=== PATIENT | male | born 1940 | race Caucasian/White ===

== ENCOUNTER 2017-06-06 16:56 | Observation (INO) ==
[2017-06-06] MEDS ORDERED: MAGNESIUM SULF RIDER 4 GM in PREMIX 1 EACH IV PRN (19:46)
[2017-06-06] MEDS ORDERED: ZALEPLON 5 MG CAPSULE PO PRN (19:46)
[2017-06-06] MEDS ORDERED: DOCUSATE SODIUM 100 MG CAPSULE PO PRN (19:46)
[2017-06-06] MEDS ORDERED: POTASSIUM CHLORIDE 20 MEQ TABLET PO PRN (19:46)
[2017-06-06] MEDS ORDERED: ACETAMINOPHEN 325 MG TABLET PO PRN (19:46)
[2017-06-06] MEDS ORDERED: LACTULOSE 20 GM/30 ML UDCUP PO PRN (19:46)
[2017-06-06] MEDS ORDERED: POTASSIUM CHLORIDE RIDER 10 MEQ in PREMIX 1 EACH IV PRN (19:46)
[2017-06-06] MEDS ORDERED: MAGNESIUM SULF RIDER 2 GM in PREMIX 1 EACH IV PRN (19:46)
[2017-06-06] MEDS ORDERED: POTASSIUM CHLORIDE RIDER 20 MEQ in PREMIX 1 EACH IV PRN (19:46)
[2017-06-06] MEDS ORDERED: ONDANSETRON 4 MG/2 ML VIAL IV PRN (19:46)
[2017-06-06] MEDS ORDERED: NITROGLYCERIN SL 0.4 MG TABLET SL PRN (19:52)
[2017-06-06] MEDS: CARVEDILOL 6.25 MG TABLET PO SCH (20:52)
[2017-06-06] MEDS: ROSUVASTATIN 20 MG TABLET PO SCH (20:52)
[2017-06-06] MEDS ORDERED: INFLUENZA VIRUS VACCINE 0.5 ML SYRINGE IM ONE (22:58)
[2017-06-07 04:46] LABS: Basophils % 0.4 % (0.0-0.8); Eosinophils # 0.1 10*3/uL (0.0-0.87); Eosinophils % 2.5 % (0.00-10.9); Hemoglobin 11.8 GM/DL (14.0-18.0); Immature Granulocytes % 0.4 %; Immature Granulocytes Absolute 0.02 #; Lymphocytes # 1.5 10*3/uL (1.4-4.0); Lymphocytes % 26.1 % (21.2-54.2); Mean Corpuscular HGB Conc 33.7 GM/DL (32-36); Mean Corpuscular Hemoglobin 27 PG (27-34); Mean Corpuscular Volume 81.4 FL (87-102); Mean Platelet Volume 10.6 FL (9.6-12.0); Monocytes # 0.6 10*3/uL (0.11-0.8); Monocytes % 10.5 % (1.7-12.7); Neutrophils # 3.4 10*3/uL (1.4-7.4); Neutrophils % 60.1 % (38.7-73.9); Platelet Count 170 T/CUMM (130-400); Red Cell Distribution Width 15.6 % (9.3-17.3); White Blood Count 5.7 T/CUMM (4-12)
[2017-06-07 05:20] LABS: Calcium 8.6 MG/DL (8.5-10.1); Osmolality,Calculated 287.4 MOS/KG (273-304); Potassium 3.8 MMOL/L (3.5-5.1)
[2017-06-07 05:26] LABS: Albumin 3.5 G/DL (3.4-5.0); Bilirubin,Total 0.9 MG/DL (0.2-1.0); Calcium 8.4 MG/DL (8.5-10.1); Osmolality,Calculated 288.4 MOS/KG (273-304); Potassium 3.7 MMOL/L (3.5-5.1); Total Protein 6.8 G/DL (6.4-8.3)
[2017-06-07] MEDS: LEVOTHYROXINE 25 MCG TABLET PO SCH (05:57)
[2017-06-07] MEDS ORDERED: ceFAZolin 1,000 MG in SYRINGE 1 EACH IV ONE (06:00)
[2017-06-07] MEDS ORDERED: ceFAZolin 1,000 MG VIAL IRRIG ONE (06:00)
[2017-06-07] MEDS ORDERED: LIDOCAINE 1% 20 ML VIAL ONE ×3 (07:42→08:03)
[2017-06-07] MEDS ORDERED: HEPARIN/NACL 0.9% 2 UNITS/ML 1,000 ML IV ONE (07:42)
[2017-06-07] MEDS ORDERED: MAGNESIUM SULF RIDER 50 ML IV ONE (08:19)
[2017-06-07] MEDS ORDERED: AMIODARONE 200 MG TABLET PO SCH (09:00)
[2017-06-07] MEDS ORDERED: TISSUE ADHESIVE 1 EACH APPLICATOR TOP ONE (09:15)
[2017-06-07] MEDS ORDERED: PROPOFOL 200 MG/20 ML VIAL IV ONE (09:46)
[2017-06-07] MEDS ORDERED: fentaNYL 100 MCG/2 ML VIAL ONE (09:47)
[2017-06-07] MEDS ORDERED: MIDAZOLAM 2 MG/2 ML VIAL ONE (09:47)
[2017-06-07] MEDS: FUROSEMIDE 40 MG TABLET PO SCH (11:21)
[2017-06-07] MEDS: LISINOPRIL 5 MG TABLET PO SCH (11:21)
[2017-06-07] MEDS: MONTELUKAST 10 MG TABLET PO SCH (11:21)
[2017-06-07] MEDS: SPIRONOLACTONE 25 MG TABLET PO SCH (11:21)
[2017-06-07] MEDS: CLOPIDOGREL 75 MG TABLET PO SCH (11:21)
[2017-06-07] MEDS: CARVEDILOL 6.25 MG TABLET PO SCH ×2 (11:22→16:38)
[2017-06-07] MEDS: ASPIRIN 325 MG TABLET PO SCH (11:22)
[2017-06-07] MEDS: PANTOPRAZOLE 40 MG TABLET PO SCH (11:22)
[2017-06-07] MEDS: MAGNESIUM CHLORIDE 64 MG TABLET PO SCH ×2 (11:22→21:43)
[2017-06-07] MEDS ORDERED: KETAMINE 500 MG/10 ML VIAL ONE (11:25)
[2017-06-07] MEDS: ceFAZolin 1,000 MG in SYRINGE 1 EACH IV SCH (16:38)
[2017-06-07] MEDS ORDERED: clonazePAM 0.5 MG TABLET PO SCH (21:00)
[2017-06-07] MEDS: ROSUVASTATIN 20 MG TABLET PO SCH (21:46)
[2017-06-08] MEDS: ceFAZolin 1,000 MG in SYRINGE 1 EACH IV SCH (01:30)
[2017-06-08] MEDS: LEVOTHYROXINE 25 MCG TABLET PO SCH (06:28)
[2017-06-08 06:58] LABS: Calcium 8.7 MG/DL (8.5-10.1); Osmolality,Calculated 281.8 MOS/KG (273-304); Potassium 3.6 MMOL/L (3.5-5.1)
[2017-06-08 06:59] LABS: Basophils % 0.4 % (0.0-0.8); Eosinophils # 0.2 10*3/uL (0.0-0.87); Eosinophils % 2.9 % (0.00-10.9); Hematocrit 35.9 VOL% (42.0-52.0); Hemoglobin 11.9 GM/DL (14.0-18.0); Immature Granulocytes % 0.2 %; Immature Granulocytes Absolute 0.01 #; Lymphocytes # 1.3 10*3/uL (1.4-4.0); Lymphocytes % 23.3 % (21.2-54.2); Mean Corpuscular HGB Conc 33.1 GM/DL (32-36); Mean Corpuscular Hemoglobin 27 PG (27-34); Mean Corpuscular Volume 82.2 FL (87-102); Mean Platelet Volume 10.5 FL (9.6-12.0); Monocytes # 0.7 10*3/uL (0.11-0.8); Monocytes % 11.9 % (1.7-12.7); Neutrophils # 3.3 10*3/uL (1.4-7.4); Neutrophils % 61.3 % (38.7-73.9); Platelet Count 172 T/CUMM (130-400); Red Blood Count 4.37 MC/CUMM (3.8-5.5); Red Cell Distribution Width 15.8 % (9.3-17.3); White Blood Count 5.4 T/CUMM (4-12)
[2017-06-08] MEDS: ASPIRIN 325 MG TABLET PO SCH (09:13)
[2017-06-08] MEDS: CARVEDILOL 6.25 MG TABLET PO SCH (09:13)
[2017-06-08] MEDS: MONTELUKAST 10 MG TABLET PO SCH (09:13)
[2017-06-08] MEDS: MAGNESIUM CHLORIDE 64 MG TABLET PO SCH (09:14)
[2017-06-08] MEDS: FUROSEMIDE 40 MG TABLET PO SCH (09:14)
[2017-06-08] MEDS: SPIRONOLACTONE 25 MG TABLET PO SCH (09:14)
[2017-06-08] MEDS: PANTOPRAZOLE 40 MG TABLET PO SCH (09:14)
[2017-06-08] MEDS: CLOPIDOGREL 75 MG TABLET PO SCH (09:14)
[2017-06-08] MEDS: LISINOPRIL 5 MG TABLET PO SCH (09:19)
[2017-06-08 11:30] VITALS: BP 133/82
[2017-06-08] MEDS ORDERED: cephALEXin 500 MG CAPSULE PO SCH (11:30)
== END 2017-06-08 14:53 | disposition home or self-care (01) ==
LOC: N.TELES
PROVIDERS: ADMIT Internal Medicine Clinical Cardiac Electrophysiology; ATTEND Internal Medicine Clinical Cardiac Electrophysiology
PROC: CLDCICD (2017-06-07 10:45)

== ENCOUNTER 2017-11-05 14:12 | Inpatient (IN) ==
[2017-11-05 15:13] LABS: Basophils % 0.4 % (0.0-0.8); Eosinophils # 0.1 10*3/uL (0.0-0.87); Eosinophils % 2.3 % (0.00-10.9); Hemoglobin 12.9 GM/DL (14.0-18.0); Immature Granulocytes % 0.4 %; Immature Granulocytes Absolute 0.02 #; Lymphocytes # 1.4 10*3/uL (1.4-4.0); Lymphocytes % 26.4 % (21.2-54.2); Mean Corpuscular HGB Conc 33.9 GM/DL (32-36); Mean Corpuscular Hemoglobin 29 PG (27-34); Mean Platelet Volume 10.3 FL (9.6-12.0); Monocytes # 0.5 10*3/uL (0.11-0.8); Monocytes % 9.8 % (1.7-12.7); Neutrophils # 3.2 10*3/uL (1.4-7.4); Neutrophils % 60.7 % (38.7-73.9); Platelet Count 172 T/CUMM (130-400); Red Blood Count 4.42 MC/CUMM (3.8-5.5); Red Cell Distribution Width 13.8 % (9.3-17.3); White Blood Count 5.3 T/CUMM (4-12)
[2017-11-05 15:34] LABS: Partial Thromboplastin Time 26.5 SECS (0-40)
[2017-11-05 15:38] LABS: Albumin 3.6 G/DL (3.4-5.0); Bilirubin,Total 0.5 MG/DL (0.2-1.0); Calcium 8.6 MG/DL (8.5-10.1); Osmolality,Calculated 287.4 MOS/KG (273-304); Potassium 4.3 MMOL/L (3.5-5.1); Total Protein 7.3 G/DL (6.4-8.3)
[2017-11-05 15:45] LABS: CKMB % 3.1 %; Free T4 (Free Thyroxine) 1.11 NG/DL (0.76-1.46); Thyroid Stimulating Hormone 2.39 uIU/ml (0.358-3.74)
[2017-11-05] MEDS ORDERED: ONDANSETRON 4 MG/2 ML VIAL ONE (15:57)
[2017-11-05] MEDS ORDERED: ONDANSETRON 4 MG/2 ML VIAL IV STA (15:57)
[2017-11-05] MEDS ORDERED: MAGNESIUM SULF RIDER 4 GM in PREMIX 1 EACH IV PRN (16:06)
[2017-11-05] MEDS ORDERED: ONDANSETRON 4 MG/2 ML VIAL IV PRN (16:06)
[2017-11-05] MEDS ORDERED: DOCUSATE SODIUM 100 MG CAPSULE PO PRN (16:06)
[2017-11-05] MEDS ORDERED: MAGNESIUM SULF RIDER 2 GM in PREMIX 1 EACH IV PRN (16:06)
[2017-11-05] MEDS ORDERED: DEXTROSE 50% 25 GM/50 ML VIAL IV PRN (16:06)
[2017-11-05] MEDS ORDERED: GLUCAGON 1 MG VIAL IM PRN (16:06)
[2017-11-05] MEDS ORDERED: ENOXAPARIN 100 MG/ML SYRINGE SUBCUT STA (16:11)
[2017-11-05] MEDS ORDERED: ASPIRIN 325 MG TABLET PO STA (16:12)
[2017-11-05 17:55] LABS: CKMB % 2.7 %
[2017-11-05] MEDS: NITROGLYCERIN 2% OINT 1 INCH/GM PACK TOP SCH ×2 (18:05→21:39)
[2017-11-05] MEDS: INSULIN LISPRO 100 UNIT/ML SUBCUT SCH ×2 (18:05→22:17)
[2017-11-05] MEDS: SODIUM CHLORIDE 0.45% 1,000 ML IV SCH (18:10)
[2017-11-06] MEDS: ZALEPLON 5 MG CAPSULE PO PRN ×2 (00:12→00:13)
[2017-11-06] MEDS: SODIUM CHLORIDE 0.45% 1,000 ML IV SCH ×2 (02:44→09:59)
[2017-11-06] MEDS ORDERED: FUROSEMIDE 40 MG TABLET PO PRN (07:44)
[2017-11-06] MEDS ORDERED: NITROGLYCERIN SL 0.4 MG TABLET SL PRN (07:44)
[2017-11-06] MEDS ORDERED: SPIRONOLACTONE 25 MG TABLET PO SCH (09:00)
[2017-11-06] MEDS ORDERED: LISINOPRIL 20 MG TABLET PO SCH (09:00)
[2017-11-06] MEDS ORDERED: CARVEDILOL 12.5 MG TABLET PO SCH (09:00)
[2017-11-06] MEDS ORDERED: PANTOPRAZOLE 40 MG TABLET PO SCH (09:00)
[2017-11-06] MEDS: FUROSEMIDE 40 MG/4 ML VIAL IV SCH ×2 (09:08→16:44)
[2017-11-06] MEDS: INSULIN LISPRO 100 UNIT/ML SUBCUT SCH ×5 (09:08→21:01)
[2017-11-06] MEDS: metFORMIN 500 MG TABLET PO SCH ×2 (09:09→16:45)
[2017-11-06] MEDS: CLOPIDOGREL 75 MG TABLET PO SCH (09:09)
[2017-11-06] MEDS: CARVEDILOL 3.125 MG TABLET PO SCH (09:10)
[2017-11-06] MEDS: GLIMEPIRIDE 4 MG TABLET PO SCH ×2 (09:10→21:01)
[2017-11-06] MEDS: SPIRONOLACTONE 25 MG TABLET PO SCH (09:10)
[2017-11-06] MEDS: NITROGLYCERIN 2% OINT 1 INCH/GM PACK TOP SCH ×4 (10:00→22:17)
[2017-11-06] MEDS: ASPIRIN 325 MG TABLET PO SCH (10:39)
[2017-11-06] MEDS: clonazePAM 0.5 MG TABLET PO SCH (21:00)
[2017-11-06] MEDS: ROSUVASTATIN 20 MG TABLET PO SCH (21:01)
[2017-11-07] MEDS: LEVOTHYROXINE 25 MCG TABLET PO SCH (06:23)
[2017-11-07] MEDS: INSULIN LISPRO 100 UNIT/ML SUBCUT SCH ×4 (09:19→22:56)
[2017-11-07] MEDS: FUROSEMIDE 40 MG/4 ML VIAL IV SCH ×2 (09:19→16:51)
[2017-11-07] MEDS: NITROGLYCERIN 2% OINT 1 INCH/GM PACK TOP SCH ×2 (09:20→13:01)
[2017-11-07] MEDS: PANTOPRAZOLE 40 MG TABLET PO SCH (09:20)
[2017-11-07] MEDS: ASPIRIN 325 MG TABLET PO SCH (09:20)
[2017-11-07] MEDS: metFORMIN 500 MG TABLET PO SCH ×2 (09:20→16:51)
[2017-11-07] MEDS: SPIRONOLACTONE 25 MG TABLET PO SCH (09:21)
[2017-11-07] MEDS: GLIMEPIRIDE 4 MG TABLET PO SCH ×2 (09:21→21:01)
[2017-11-07] MEDS: CARVEDILOL 3.125 MG TABLET PO SCH (09:21)
[2017-11-07] MEDS: CLOPIDOGREL 75 MG TABLET PO SCH (09:21)
[2017-11-07] MEDS ORDERED: DEXTROSE 50% 25 GM/50 ML VIAL IV PRN (13:25)
[2017-11-07] MEDS ORDERED: GLUCAGON 1 MG VIAL IM PRN (13:25)
[2017-11-07 13:31] LABS: Basophils % 0.6 % (0.0-0.8); Eosinophils # 0.2 10*3/uL (0.0-0.87); Eosinophils % 2.8 % (0.00-10.9); Hematocrit 40.4 VOL% (42.0-52.0); Hemoglobin 13.6 GM/DL (14.0-18.0); Immature Granulocytes % 0.6 %; Immature Granulocytes Absolute 0.03 #; Lymphocytes # 1.5 10*3/uL (1.4-4.0); Lymphocytes % 26.6 % (21.2-54.2); Mean Corpuscular HGB Conc 33.7 GM/DL (32-36); Mean Corpuscular Hemoglobin 29 PG (27-34); Mean Corpuscular Volume 86.9 FL (87-102); Mean Platelet Volume 10.1 FL (9.6-12.0); Monocytes # 0.6 10*3/uL (0.11-0.8); Monocytes % 10.1 % (1.7-12.7); Neutrophils # 3.2 10*3/uL (1.4-7.4); Neutrophils % 59.3 % (38.7-73.9); Platelet Count 182 T/CUMM (130-400); Red Blood Count 4.65 MC/CUMM (3.8-5.5); Red Cell Distribution Width 13.9 % (9.3-17.3); White Blood Count 5.5 T/CUMM (4-12)
[2017-11-07 13:45] LABS: Potassium 3.7 MMOL/L (3.5-5.1)
[2017-11-07] MEDS: ROSUVASTATIN 20 MG TABLET PO SCH (21:01)
[2017-11-07] MEDS: clonazePAM 0.5 MG TABLET PO SCH (21:01)
[2017-11-08] MEDS: ZALEPLON 5 MG CAPSULE PO PRN (01:10)
[2017-11-08 05:53] LABS: Basophils % 0.5 % (0.0-0.8); Eosinophils # 0.2 10*3/uL (0.0-0.87); Eosinophils % 2.6 % (0.00-10.9); Hematocrit 38.1 VOL% (42.0-52.0); Hemoglobin 12.8 GM/DL (14.0-18.0); Immature Granulocytes % 0.3 %; Immature Granulocytes Absolute 0.02 #; Mean Corpuscular HGB Conc 33.6 GM/DL (32-36); Mean Corpuscular Hemoglobin 29 PG (27-34); Mean Corpuscular Volume 85.6 FL (87-102); Mean Platelet Volume 10.3 FL (9.6-12.0); Monocytes # 0.8 10*3/uL (0.11-0.8); Monocytes % 12.4 % (1.7-12.7); Neutrophils # 3.3 10*3/uL (1.4-7.4); Neutrophils % 52.2 % (38.7-73.9); Platelet Count 177 T/CUMM (130-400); Red Blood Count 4.45 MC/CUMM (3.8-5.5); Red Cell Distribution Width 13.5 % (9.3-17.3); White Blood Count 6.2 T/CUMM (4-12)
[2017-11-08] MEDS: LEVOTHYROXINE 25 MCG TABLET PO SCH (06:10)
[2017-11-08 06:25] LABS: Calcium 8.9 MG/DL (8.5-10.1); Osmolality,Calculated 279.7 MOS/KG (273-304); Potassium 3.6 MMOL/L (3.5-5.1)
[2017-11-08] MEDS: INSULIN LISPRO 100 UNIT/ML SUBCUT SCH ×3 (08:06→16:25)
[2017-11-08] MEDS: FUROSEMIDE 40 MG/4 ML VIAL IV SCH (08:46)
[2017-11-08] MEDS: SPIRONOLACTONE 25 MG TABLET PO SCH (08:46)
[2017-11-08] MEDS: PANTOPRAZOLE 40 MG TABLET PO SCH (08:47)
[2017-11-08] MEDS: metFORMIN 500 MG TABLET PO SCH ×2 (08:47→16:26)
[2017-11-08] MEDS: CLOPIDOGREL 75 MG TABLET PO SCH (08:47)
[2017-11-08] MEDS: CARVEDILOL 3.125 MG TABLET PO SCH (08:47)
[2017-11-08] MEDS: ASPIRIN 325 MG TABLET PO SCH (08:47)
[2017-11-08] MEDS: ISOSORBIDE MONONITRATE 30 MG TABLET PO SCH (08:47)
[2017-11-08] MEDS: GLIMEPIRIDE 4 MG TABLET PO SCH ×2 (08:47→20:52)
[2017-11-08] MEDS: SOTALOL 80 MG TABLET PO SCH ×2 (12:13→20:52)
[2017-11-08] MEDS ORDERED: FUROSEMIDE 40 MG/4 ML VIAL IV ONE (16:00)
[2017-11-08] MEDS: ROSUVASTATIN 20 MG TABLET PO SCH (20:52)
[2017-11-08] MEDS: clonazePAM 0.5 MG TABLET PO SCH (20:52)
[2017-11-09] MEDS: INSULIN LISPRO 100 UNIT/ML SUBCUT SCH ×3 (00:04→12:52)
[2017-11-09 04:30] LABS: Basophils % 0.3 % (0.0-0.8); Eosinophils # 0.2 10*3/uL (0.0-0.87); Hematocrit 39.1 VOL% (42.0-52.0); Hemoglobin 13.1 GM/DL (14.0-18.0); Immature Granulocytes % 0.4 %; Immature Granulocytes Absolute 0.03 #; Lymphocytes # 2.4 10*3/uL (1.4-4.0); Lymphocytes % 33.9 % (21.2-54.2); Mean Corpuscular HGB Conc 33.5 GM/DL (32-36); Mean Corpuscular Hemoglobin 29 PG (27-34); Mean Corpuscular Volume 85.6 FL (87-102); Mean Platelet Volume 10.5 FL (9.6-12.0); Monocytes # 0.9 10*3/uL (0.11-0.8); Monocytes % 12.3 % (1.7-12.7); Neutrophils # 3.5 10*3/uL (1.4-7.4); Neutrophils % 50.1 % (38.7-73.9); Platelet Count 217 T/CUMM (130-400); Red Blood Count 4.57 MC/CUMM (3.8-5.5); Red Cell Distribution Width 13.7 % (9.3-17.3)
[2017-11-09 04:53] LABS: Calcium 9.3 MG/DL (8.5-10.1)
[2017-11-09] MEDS: LEVOTHYROXINE 25 MCG TABLET PO SCH (06:30)
[2017-11-09 08:25] VITALS: BP 102/68
[2017-11-09] MEDS: ASPIRIN 325 MG TABLET PO SCH (09:00)
[2017-11-09] MEDS: SOTALOL 80 MG TABLET PO SCH (09:00)
[2017-11-09] MEDS ORDERED: FUROSEMIDE 40 MG TABLET PO SCH (09:00)
[2017-11-09] MEDS: metFORMIN 500 MG TABLET PO SCH (09:00)
[2017-11-09] MEDS: GLIMEPIRIDE 4 MG TABLET PO SCH (09:00)
[2017-11-09] MEDS: SPIRONOLACTONE 25 MG TABLET PO SCH (09:00)
[2017-11-09] MEDS: CLOPIDOGREL 75 MG TABLET PO SCH (09:00)
[2017-11-09] MEDS: ISOSORBIDE MONONITRATE 30 MG TABLET PO SCH (09:01)
[2017-11-09] MEDS: PANTOPRAZOLE 40 MG TABLET PO SCH (09:01)
[2017-11-09] MEDS: CARVEDILOL 3.125 MG TABLET PO SCH (09:01)
== END 2017-11-09 12:30 | disposition home or self-care (01) | DRG 293 ==
LOC: N.ED 14:12 → N.EDINP 16:06 → N.TELEN 17:55
PROVIDERS: ADMIT Internal Medicine Interventional Cardiology; ATTEND Internal Medicine Interventional Cardiology

== ENCOUNTER 2018-04-17 05:53 | Inpatient (IN) ==
[2018-04-17] MEDS ORDERED: DIAZEPAM 5 MG TABLET ONE (07:44)
[2018-04-17] MEDS ORDERED: diphenhydrAMINE CAP 25 MG CAPSULE ONE (07:44)
[2018-04-17] MEDS ORDERED: MAGNESIUM SULF RIDER 2 GM in PREMIX 1 EACH IV PRN (07:58)
[2018-04-17] MEDS ORDERED: POTASSIUM CHLORIDE RIDER 10 MEQ in PREMIX 1 EACH IV PRN (07:58)
[2018-04-17] MEDS ORDERED: ASPIRIN 325 MG TABLET PO ONE (07:58)
[2018-04-17] MEDS ORDERED: diphenhydrAMINE CAP 25 MG CAPSULE PO ONE (07:58)
[2018-04-17] MEDS ORDERED: DIAZEPAM 5 MG TABLET PO ONE (07:58)
[2018-04-17] MEDS ORDERED: DEXTROSE 5% NACL 0.45% 1,000 ML IV SCH (08:00)
[2018-04-17] MEDS ORDERED: HEPARIN/NACL 0.9% 2 UNITS/ML 1,000 ML IV ONE (08:23)
[2018-04-17] MEDS ORDERED: LIDOCAINE 1%/EPI INJ 20 ML VIAL ONE (08:23)
[2018-04-17] MEDS ORDERED: MIDAZOLAM 2 MG/2 ML VIAL ONE (08:42)
[2018-04-17] MEDS ORDERED: fentaNYL 100 MCG/2 ML VIAL ONE (08:42)
[2018-04-17] MEDS ORDERED: GLUCAGON 1 MG VIAL IM PRN (09:21)
[2018-04-17] MEDS ORDERED: DEXTROSE 50% 25 GM/50 ML VIAL IV PRN (09:21)
[2018-04-17] MEDS ORDERED: FUROSEMIDE 40 MG TABLET PO PRN (09:42)
[2018-04-17] MEDS ORDERED: NITROGLYCERIN SL 0.4 MG TABLET SL PRN (09:42)
[2018-04-17] MEDS ORDERED: fentaNYL 100 MCG/2 ML VIAL IV PRN (09:49)
[2018-04-17] MEDS ORDERED: SODIUM CHLORIDE 0.45% 1,000 ML IV SCH (10:00)
[2018-04-17] MEDS ORDERED: clonazePAM 0.5 MG TABLET PO ONE (11:41)
[2018-04-17] MEDS: RANOLAZINE 500 MG TABLET PO SCH (21:52)
[2018-04-17] MEDS: GLIMEPIRIDE 4 MG TABLET PO SCH (21:52)
[2018-04-17] MEDS: ROSUVASTATIN 20 MG TABLET PO SCH (21:53)
[2018-04-17] MEDS: clonazePAM 0.5 MG TABLET PO SCH (21:53)
[2018-04-17] MEDS: SOTALOL 80 MG TABLET PO SCH (21:53)
[2018-04-18 04:38] LABS: Basophils % 0.3 % (0.0-0.8); Eosinophils # 0.1 10*3/uL (0.0-0.87); Eosinophils % 1.8 % (0.00-10.9); Hematocrit 40.4 VOL% (42.0-52.0); Hemoglobin 13.2 GM/DL (14.0-18.0); Immature Granulocytes % 0.4 %; Immature Granulocytes Absolute 0.03 #; Lymphocytes # 2.1 10*3/uL (1.4-4.0); Lymphocytes % 27.1 % (21.2-54.2); Mean Corpuscular HGB Conc 32.7 GM/DL (32-36); Mean Corpuscular Hemoglobin 28 PG (27-34); Mean Corpuscular Volume 85.1 FL (87-102); Mean Platelet Volume 9.9 FL (9.6-12.0); Monocytes % 13.3 % (1.7-12.7); Neutrophils # 4.5 10*3/uL (1.4-7.4); Neutrophils % 57.1 % (38.7-73.9); Platelet Count 176 T/CUMM (130-400); Red Blood Count 4.75 MC/CUMM (3.8-5.5); Red Cell Distribution Width 13.9 % (9.3-17.3); White Blood Count 7.8 T/CUMM (4-12)
[2018-04-18 05:00] LABS: Calcium 9.2 MG/DL (8.5-10.1); Potassium 3.8 MMOL/L (3.5-5.1)
[2018-04-18] MEDS: LEVOTHYROXINE 25 MCG TABLET PO SCH (06:12)
[2018-04-18] MEDS ORDERED: PANTOPRAZOLE 40 MG TABLET PO SCH (09:00)
[2018-04-18] MEDS ORDERED: ISOSORBIDE MONONITRATE 30 MG TABLET PO SCH (09:00)
[2018-04-18] MEDS: ASPIRIN 325 MG TABLET PO SCH (09:29)
[2018-04-18] MEDS: SPIRONOLACTONE 25 MG TABLET PO SCH (09:29)
[2018-04-18] MEDS: GLIMEPIRIDE 4 MG TABLET PO SCH ×2 (09:29→21:41)
[2018-04-18] MEDS: SOTALOL 80 MG TABLET PO SCH ×2 (09:29→21:40)
[2018-04-18] MEDS: CLOPIDOGREL 75 MG TABLET PO SCH (09:30)
[2018-04-18] MEDS: PANTOPRAZOLE 40 MG TABLET PO SCH (09:30)
[2018-04-18] MEDS: CARVEDILOL 3.125 MG TABLET PO SCH (09:30)
[2018-04-18] MEDS: RANOLAZINE 500 MG TABLET PO SCH ×2 (09:30→21:40)
[2018-04-18] MEDS ORDERED: GLUCAGON 1 MG VIAL IM PRN ×2 (09:34→15:26)
[2018-04-18] MEDS ORDERED: DEXTROSE 50% 25 GM/50 ML SYRINGE IV PRN ×2 (09:34→15:26)
[2018-04-18] MEDS ORDERED: MAGNESIUM SULF RIDER 2 GM in PREMIX 1 EACH IV PRN (12:10)
[2018-04-18] MEDS ORDERED: POTASSIUM CHLORIDE RIDER 10 MEQ in PREMIX 1 EACH IV PRN (12:10)
[2018-04-18] MEDS: INSULIN REGULAR 100 UNIT/ML SUBCUT SCH ×2 (17:25→21:51)
[2018-04-18] MEDS ORDERED: diphenhydrAMINE CAP 25 MG CAPSULE PO PRN (21:00)
[2018-04-18] MEDS: ROSUVASTATIN 20 MG TABLET PO SCH (21:40)
[2018-04-18] MEDS: clonazePAM 0.5 MG TABLET PO SCH (21:41)
[2018-04-19 03:38] LABS: Basophils % 0.4 % (0.0-0.8); Eosinophils # 0.1 10*3/uL (0.0-0.87); Eosinophils % 1.5 % (0.00-10.9); Hematocrit 41.1 VOL% (42.0-52.0); Immature Granulocytes % 0.4 %; Immature Granulocytes Absolute 0.03 #; Lymphocytes % 25.6 % (21.2-54.2); Mean Corpuscular HGB Conc 31.6 GM/DL (32-36); Mean Corpuscular Hemoglobin 27 PG (27-34); Mean Corpuscular Volume 85.4 FL (87-102); Mean Platelet Volume 10.1 FL (9.6-12.0); Neutrophils # 4.6 10*3/uL (1.4-7.4); Neutrophils % 59.1 % (38.7-73.9); Platelet Count 182 T/CUMM (130-400); Red Blood Count 4.81 MC/CUMM (3.8-5.5); Red Cell Distribution Width 13.8 % (9.3-17.3); White Blood Count 7.8 T/CUMM (4-12)
[2018-04-19 04:08] LABS: Calcium 8.6 MG/DL (8.5-10.1); Osmolality,Calculated 276.8 MOS/KG (273-304)
[2018-04-19] MEDS: LEVOTHYROXINE 25 MCG TABLET PO SCH (06:34)
[2018-04-19] MEDS ORDERED: CLOPIDOGREL 75 MG TABLET PO ONE (09:30)
[2018-04-19] MEDS: GLIMEPIRIDE 4 MG TABLET PO SCH ×2 (10:28→20:06)
[2018-04-19] MEDS: INSULIN REGULAR 100 UNIT/ML SUBCUT SCH ×4 (10:28→20:09)
[2018-04-19] MEDS: SPIRONOLACTONE 25 MG TABLET PO SCH (10:28)
[2018-04-19] MEDS: CARVEDILOL 3.125 MG TABLET PO SCH (10:29)
[2018-04-19] MEDS: SOTALOL 80 MG TABLET PO SCH ×2 (10:29→20:05)
[2018-04-19] MEDS: CLOPIDOGREL 75 MG TABLET PO SCH ×2 (10:29→11:17)
[2018-04-19] MEDS: PANTOPRAZOLE 40 MG TABLET PO SCH (10:30)
[2018-04-19] MEDS: RANOLAZINE 500 MG TABLET PO SCH ×2 (10:30→20:06)
[2018-04-19] MEDS: ASPIRIN 325 MG TABLET PO SCH (10:32)
[2018-04-19] MEDS ORDERED: LIDOCAINE 1%/EPI INJ 20 ML VIAL ONE (12:48)
[2018-04-19] MEDS ORDERED: HEPARIN/NACL 0.9% 2 UNITS/ML 1,000 ML IV ONE (12:48)
[2018-04-19] MEDS ORDERED: diphenhydrAMINE CAP 25 MG CAPSULE PO ONE (13:00)
[2018-04-19] MEDS ORDERED: DIAZEPAM 5 MG TABLET PO ONE (13:00)
[2018-04-19] MEDS ORDERED: LIDOCAINE 2%/EPI 20 ML VIAL ONE (13:53)
[2018-04-19] MEDS ORDERED: fentaNYL 100 MCG/2 ML VIAL ONE (13:54)
[2018-04-19] MEDS ORDERED: MIDAZOLAM 2 MG/2 ML VIAL ONE (13:54)
[2018-04-19] MEDS ORDERED: HEPARIN 5,000 UNIT/1 ML VIAL ONE (14:14)
[2018-04-19] MEDS ORDERED: TIROFIBAN 5,000 MCG/100 ML PREMIX IV ONE (14:30)
[2018-04-19] MEDS ORDERED: TIROFIBAN 5,000 MCG/100 ML PREMIX IV SCH (14:35)
[2018-04-19] MEDS ORDERED: FUROSEMIDE 40 MG/4 ML VIAL ONE (15:10)
[2018-04-19] MEDS ORDERED: ONDANSETRON 4 MG/2 ML VIAL IV PRN (15:13)
[2018-04-19 15:18] LABS: Apearance,Urine Slightly Hazy (Clear); Bacteria,Urine Occasional /HPF (Few); Bilirubin,Urine Negative (Negative); Blood, Urine Negative (Negative); Glucose,Urine (UA) 50 mg/dL (Negative); Ketones,Urine 5 mg/dL (Negative); Mucus,Urine Many /LPF (Occasional); Nitrite,Urine Negative (Negative); Protein,Urine 30 MG/DL; RBC,Urine 1 /HPF (0-4); Squamous Epithelial Cell,Urine Occasional /HPF (0-10); Urine Color Amber (Yellow); Urine Specific Gravity 1.034 (1.001-1.035); WBC,Urine 2 /HPF (0-6)
[2018-04-19] MEDS ORDERED: ALPRAZolam 0.25 MG TABLET PO PRN (16:32)
[2018-04-19] MEDS: DOBUTamine 500 MG/250 ML PREMIX IV SCH (17:29)
[2018-04-19 17:50] LABS: Basophils % 0.4 % (0.0-0.8); Eosinophils # 0.2 10*3/uL (0.0-0.87); Hematocrit 42.1 VOL% (42.0-52.0); Hemoglobin 13.7 GM/DL (14.0-18.0); Immature Granulocytes % 0.3 %; Immature Granulocytes Absolute 0.03 #; Lymphocytes # 2.2 10*3/uL (1.4-4.0); Lymphocytes % 23.8 % (21.2-54.2); Mean Corpuscular HGB Conc 32.5 GM/DL (32-36); Mean Corpuscular Hemoglobin 27 PG (27-34); Mean Corpuscular Volume 83.7 FL (87-102); Mean Platelet Volume 9.8 FL (9.6-12.0); Monocytes # 1.1 10*3/uL (0.11-0.8); Neutrophils # 5.8 10*3/uL (1.4-7.4); Neutrophils % 61.5 % (38.7-73.9); Platelet Count 227 T/CUMM (130-400); Red Blood Count 5.03 MC/CUMM (3.8-5.5); White Blood Count 9.4 T/CUMM (4-12)
[2018-04-19 18:17] LABS: Albumin 3.3 G/DL (3.4-5.0); Bilirubin,Total 1.2 MG/DL (0.2-1.0); Calcium 8.7 MG/DL (8.5-10.1); Osmolality,Calculated 272.2 MOS/KG (273-304); Potassium 4.1 MMOL/L (3.5-5.1); Total Protein 8.3 G/DL (6.4-8.3)
[2018-04-19] MEDS: clonazePAM 0.5 MG TABLET PO SCH (20:06)
[2018-04-19] MEDS: ROSUVASTATIN 20 MG TABLET PO SCH (20:06)
[2018-04-20 03:38] LABS: Basophils % 0.3 % (0.0-0.8); Eosinophils # 0.1 10*3/uL (0.0-0.87); Eosinophils % 0.7 % (0.00-10.9); Hematocrit 43.2 VOL% (42.0-52.0); Immature Granulocytes % 0.3 %; Immature Granulocytes Absolute 0.03 #; Lymphocytes % 21.7 % (21.2-54.2); Mean Corpuscular HGB Conc 32.4 GM/DL (32-36); Mean Corpuscular Hemoglobin 27 PG (27-34); Mean Corpuscular Volume 84.5 FL (87-102); Monocytes # 1.4 10*3/uL (0.11-0.8); Neutrophils # 5.6 10*3/uL (1.4-7.4); Platelet Count 183 T/CUMM (130-400); Red Blood Count 5.11 MC/CUMM (3.8-5.5); Red Cell Distribution Width 13.9 % (9.3-17.3)
[2018-04-20 04:06] LABS: Calcium 8.9 MG/DL (8.5-10.1); Osmolality,Calculated 270.2 MOS/KG (273-304); Potassium 3.9 MMOL/L (3.5-5.1)
[2018-04-20] MEDS: LEVOTHYROXINE 25 MCG TABLET PO SCH (05:59)
[2018-04-20] MEDS: RANOLAZINE 500 MG TABLET PO SCH ×2 (08:50→21:05)
[2018-04-20] MEDS: SOTALOL 80 MG TABLET PO SCH ×2 (08:51→21:05)
[2018-04-20] MEDS: SPIRONOLACTONE 25 MG TABLET PO SCH (08:51)
[2018-04-20] MEDS: GLIMEPIRIDE 4 MG TABLET PO SCH ×2 (08:51→21:05)
[2018-04-20] MEDS: ASPIRIN 325 MG TABLET PO SCH (08:51)
[2018-04-20] MEDS: CLOPIDOGREL 75 MG TABLET PO SCH (08:52)
[2018-04-20] MEDS: CARVEDILOL 3.125 MG TABLET PO SCH (08:52)
[2018-04-20] MEDS: INSULIN REGULAR 100 UNIT/ML SUBCUT SCH ×4 (08:53→21:05)
[2018-04-20] MEDS: PANTOPRAZOLE 40 MG TABLET PO SCH (08:57)
[2018-04-20] MEDS: DOBUTamine 500 MG/250 ML PREMIX IV SCH (18:08)
[2018-04-20] MEDS: ROSUVASTATIN 20 MG TABLET PO SCH (21:04)
[2018-04-20] MEDS: clonazePAM 0.5 MG TABLET PO SCH (21:05)
[2018-04-21 04:43] LABS: Basophils % 0.4 % (0.0-0.8); Eosinophils # 0.1 10*3/uL (0.0-0.87); Hematocrit 41.1 VOL% (42.0-52.0); Hemoglobin 13.5 GM/DL (14.0-18.0); Immature Granulocytes % 0.5 %; Immature Granulocytes Absolute 0.04 #; Lymphocytes # 1.6 10*3/uL (1.4-4.0); Mean Corpuscular HGB Conc 32.8 GM/DL (32-36); Mean Corpuscular Hemoglobin 28 PG (27-34); Mean Corpuscular Volume 84.2 FL (87-102); Mean Platelet Volume 9.9 FL (9.6-12.0); Monocytes # 1.3 10*3/uL (0.11-0.8); Monocytes % 15.8 % (1.7-12.7); Neutrophils # 4.9 10*3/uL (1.4-7.4); Neutrophils % 62.3 % (38.7-73.9); Platelet Count 215 T/CUMM (130-400); Red Blood Count 4.88 MC/CUMM (3.8-5.5); Red Cell Distribution Width 13.8 % (9.3-17.3); White Blood Count 7.9 T/CUMM (4-12)
[2018-04-21 05:12] LABS: Calcium 8.8 MG/DL (8.5-10.1); Osmolality,Calculated 269.2 MOS/KG (273-304); Potassium 3.7 MMOL/L (3.5-5.1)
[2018-04-21 05:44] LABS: Band Neutrophils 5 % (0-10); Lymphocytes 19 % (20-55); Platelet Estimate Normal; Segmented Neutrophils 67 % (50-85); Total Cells Counted 100
[2018-04-21] MEDS: LEVOTHYROXINE 25 MCG TABLET PO SCH (07:24)
[2018-04-21] MEDS ORDERED: metFORMIN 500 MG TABLET PO SCH (08:00)
[2018-04-21] MEDS: INSULIN REGULAR 100 UNIT/ML SUBCUT SCH ×2 (08:04→12:24)
[2018-04-21] MEDS: CLOPIDOGREL 75 MG TABLET PO SCH (08:47)
[2018-04-21] MEDS: PANTOPRAZOLE 40 MG TABLET PO SCH (08:48)
[2018-04-21] MEDS: ASPIRIN 325 MG TABLET PO SCH (08:48)
[2018-04-21] MEDS: GLIMEPIRIDE 4 MG TABLET PO SCH (08:48)
[2018-04-21] MEDS: CARVEDILOL 3.125 MG TABLET PO SCH (08:48)
[2018-04-21] MEDS: RANOLAZINE 500 MG TABLET PO SCH (08:48)
[2018-04-21] MEDS: SOTALOL 80 MG TABLET PO SCH (08:48)
[2018-04-21] MEDS: SPIRONOLACTONE 25 MG TABLET PO SCH (08:49)
[2018-04-21 12:47] VITALS: BP 110/62
== END 2018-04-21 15:35 | disposition home or self-care (01) | DRG 246 ==
LOC: N.CL 05:53 → N.TELES 10:50 → N.ICU 04-19 16:56 → N.TELES 04-20 13:50
PROVIDERS: ADMIT Internal Medicine Interventional Cardiology; ATTEND Internal Medicine Interventional Cardiology
PROC: CLCCHCL (ICD-10-PCS; 2018-04-17 09:15)

== ENCOUNTER 2018-06-23 10:55 | Inpatient (IN) ==
[2018-06-23] MEDS ORDERED: MORPHINE 4 MG/1 ML VIAL IV PRN (13:51)
[2018-06-23] MEDS ORDERED: DEXTROSE 50% 25 GM/50 ML SYRINGE IV PRN (13:51)
[2018-06-23] MEDS ORDERED: GLUCAGON 1 MG VIAL IM PRN (13:51)
[2018-06-23] MEDS ORDERED: ONDANSETRON 4 MG/2 ML VIAL IV PRN (13:51)
[2018-06-23] MEDS: SPIRONOLACTONE 25 MG TABLET PO SCH (15:01)
[2018-06-23] MEDS: PANTOPRAZOLE 40 MG TABLET PO SCH (15:02)
[2018-06-23] MEDS: ENOXAPARIN 40 MG/0.4 ML SYRINGE SUBCUT SCH (15:02)
[2018-06-23] MEDS: FUROSEMIDE 40 MG/4 ML VIAL IV SCH (15:41)
[2018-06-23] MEDS: INSULIN LISPRO 100 UNIT/ML SUBCUT SCH ×2 (15:42→20:46)
[2018-06-23] MEDS: ZALEPLON 5 MG CAPSULE PO PRN ×2 (20:45→23:03)
[2018-06-23] MEDS: SOTALOL 80 MG TABLET PO SCH (20:45)
[2018-06-23] MEDS: INSULIN GLARGINE 100 UNIT/ML SUBCUT SCH (20:46)
[2018-06-24 04:38] LABS: Basophils % 0.2 % (0.0-0.8); Eosinophils # 0.1 10*3/uL (0.0-0.87); Eosinophils % 1.6 % (0.00-10.9); Hematocrit 41.6 VOL% (42.0-52.0); Hemoglobin 13.5 GM/DL (14.0-18.0); Immature Granulocytes % 0.4 %; Immature Granulocytes Absolute 0.03 #; Lymphocytes # 2.4 10*3/uL (1.4-4.0); Lymphocytes % 28.8 % (21.2-54.2); Mean Corpuscular HGB Conc 32.5 GM/DL (32-36); Mean Corpuscular Hemoglobin 27 PG (27-34); Mean Corpuscular Volume 83.5 FL (87-102); Mean Platelet Volume 10.3 FL (9.6-12.0); Monocytes % 11.7 % (1.7-12.7); Neutrophils # 4.8 10*3/uL (1.4-7.4); Neutrophils % 57.3 % (38.7-73.9); Platelet Count 171 T/CUMM (130-400); Red Blood Count 4.98 MC/CUMM (3.8-5.5); Red Cell Distribution Width 14.3 % (9.3-17.3); White Blood Count 8.3 T/CUMM (4-12)
[2018-06-24 05:00] LABS: Calcium 8.8 MG/DL (8.5-10.1); Osmolality,Calculated 273.2 MOS/KG (273-304); Potassium 3.4 MMOL/L (3.5-5.1)
[2018-06-24] MEDS: LEVOTHYROXINE 25 MCG TABLET PO SCH (06:18)
[2018-06-24] MEDS ORDERED: MAGNESIUM SULF RIDER 2 GM in PREMIX 1 EACH IV PRN (06:33)
[2018-06-24] MEDS ORDERED: MAGNESIUM SULF RIDER 4 GM in PREMIX 1 EACH IV PRN (06:33)
[2018-06-24] MEDS ORDERED: POTASSIUM CHLORIDE RIDER 10 MEQ in PREMIX 1 EACH IV PRN (06:33)
[2018-06-24] MEDS: INSULIN LISPRO 100 UNIT/ML SUBCUT SCH ×4 (08:06→21:09)
[2018-06-24] MEDS: FUROSEMIDE 40 MG/4 ML VIAL IV SCH ×2 (08:07→16:45)
[2018-06-24] MEDS: ISOSORBIDE MONONITRATE 30 MG TABLET PO SCH (08:07)
[2018-06-24] MEDS: CLOPIDOGREL 75 MG TABLET PO SCH (08:07)
[2018-06-24] MEDS: SOTALOL 80 MG TABLET PO SCH ×2 (08:07→21:08)
[2018-06-24] MEDS: SPIRONOLACTONE 25 MG TABLET PO SCH (08:07)
[2018-06-24] MEDS: POTASSIUM CHLORIDE 20 MEQ TABLET PO PRN (08:07)
[2018-06-24] MEDS: PANTOPRAZOLE 40 MG TABLET PO SCH (08:08)
[2018-06-24] MEDS ORDERED: MAGNESIUM SULF RIDER 2 GM in PREMIX 1 EACH IV ONE (10:00)
[2018-06-24] MEDS: POTASSIUM CHLORIDE 20 MEQ TABLET PO SCH ×3 (11:03→17:27)
[2018-06-24] MEDS: ENOXAPARIN 40 MG/0.4 ML SYRINGE SUBCUT SCH (14:39)
[2018-06-24] MEDS ORDERED: clonazePAM 0.5 MG TABLET PO SCH (21:00)
[2018-06-24] MEDS: INSULIN GLARGINE 100 UNIT/ML SUBCUT SCH (21:09)
[2018-06-24] MEDS: ZALEPLON 5 MG CAPSULE PO PRN (23:28)
[2018-06-25 06:03] LABS: Calcium 8.8 MG/DL (8.5-10.1); Osmolality,Calculated 277.1 MOS/KG (273-304); Potassium 3.9 MMOL/L (3.5-5.1)
[2018-06-25] MEDS: LEVOTHYROXINE 25 MCG TABLET PO SCH (06:41)
[2018-06-25] MEDS ORDERED: FUROSEMIDE 40 MG/4 ML VIAL IV SCH (09:00)
[2018-06-25] MEDS: CLOPIDOGREL 75 MG TABLET PO SCH (09:17)
[2018-06-25] MEDS: POTASSIUM CHLORIDE 20 MEQ TABLET PO PRN (09:17)
[2018-06-25] MEDS: FUROSEMIDE 40 MG/4 ML VIAL IV SCH (09:17)
[2018-06-25] MEDS: SPIRONOLACTONE 25 MG TABLET PO SCH (09:17)
[2018-06-25] MEDS: SOTALOL 80 MG TABLET PO SCH (09:17)
[2018-06-25] MEDS: PANTOPRAZOLE 40 MG TABLET PO SCH (09:17)
[2018-06-25] MEDS: INSULIN LISPRO 100 UNIT/ML SUBCUT SCH ×2 (09:18→12:54)
[2018-06-25] MEDS: ISOSORBIDE MONONITRATE 30 MG TABLET PO SCH (09:18)
[2018-06-25 12:10] VITALS: BP 109/72
== END 2018-06-25 13:57 | disposition home or self-care (01) | DRG 292 ==
LOC: N.CC 12:37 → SUATTDRO 12:37 → N.2E 06-24 11:57
PROVIDERS: ADMIT Internal Medicine; ATTEND Internal Medicine